=== PATIENT | male | born 1995 | race Caucasian/White ===

== ENCOUNTER 2018-10-02 22:38 | Emergency (ER) | payer OTHER ==
[~2018-10-02 22:38] MED LIST: HYDR-653 PO; TRIA80OI13 TP
--- NOTE | 2018-10-02 22:46 | ER Report ---
History and Physical Time Seen By MD: 22:46 Hx. of Stated Complaint: Patient states he slipped on ice at 2220, falling backwards and hitting his head and left elbow HPI/ROS CHIEF COMPLAINT: fall, elbow injury HISTORY OF PRESENT ILLNESS: This is a 23 year old male. He slipped on the ice tonight. Fell backward. Hit elbow, left. Pain over olecranon and any movement. Has some diffuse tingling distally. Unsure if he hit his head. No loss of consciousness. Vomited once, he thinks from the stress. No headache. No vision changes at this time. No nausea at this time. No dizziness. No neck or back pain. Allergies: Coded Allergies: No Known Drug Allergies (Unverified , 10/02/18) Home Meds Active Scripts Hydrocodone Bit/Acetaminophen (NORCO 5-325 TABLET) 1 Each Tablet, 1 EACH PO Q4H PRN for PAIN, #15 Prov:MIKAYLA DAO DO 05/22/15 Reported Medications Propranolol Hcl (PROPRANOLOL HCL) 20 Mg/5 Ml Solution, 30 MG PO BID 10/02/18 Discontinued Scripts Triamcinolone Acetonide 0.025% (TRIAMCINOLONE ACETONIDE 0.025%) 80 Gm Oint...g., 80 GM TP BID for affected area, #1 TUB Apply a small amount topically 2-3 times a day to affected area Prov:MIKAYLA DAO DO 05/22/15 Reviewed Nurses Notes: Yes Hx Smoking: No Smoking Status: Never Smoker Constitutional Vital Sign - Last 24 Hours 10/02/18 10/02/18 10/02/18 10/02/18 22:41 22:42 23:00 23:08 Temp 98.2 Pulse 56 64 Resp 16 B/P (MAP) 135/72 (93) 135/72 117/75 (89) Pulse Ox 93 90 O2 Delivery Room Air 10/02/18 10/02/18 10/02/18 10/03/18 23:13 23:30 23:43 00:00 Pulse 62 75 B/P (MAP) 112/101 (105) 136/91 (106) Pulse Ox 93 89 Physical Exam General Appearance: Alert, mild distress. Pain in elbow. Eyes: Pupils equal and round, no injection. Reactive to light. Extraocular movements are intact. ENT: Normal oral mucosa. Moist mucous membranes. Neck: Neck is supple and non tender. Respiratory: Chest is non tender, lungs are clear to auscultation. Cardiac: regular rate and rhythm Gastrointestinal: Abdomen is soft and non tender, no masses, bowel sounds normal. Musculoskeletal: Extremities have full range of motion, but pain with elbow motion on left. Pain with palpation over olecranon. No pain in anticubital fossa. No tenderness in head, neck or back. Skin: No rashes or lesions. DIFFERENTIAL DIAGNOSIS: After history and physical exam differential diagnosis was considered for elbow injury with fall. no sign of concussion. Medical Decision Making EKG/Imaging Imaging EXAMINATION: Left elbow radiographs 3 views HISTORY: Fall, pain COMPARISON: None. FINDINGS: Frontal, oblique and lateral views obtained. Bones: Normal. Joint spaces: Normal. Alignment: Normal. Soft tissues: Normal. Effusion: None. IMPRESSION: No fracture of malalignment. Report Dictated By: Cheikh Henao MD at 10/02/2018 11:45 PM ED Course/Re-evaluation ED Course Imaging negative and discussed with the patient. MOON wrap and sling with ice, Ibuprofen and rest as noted. Decision to Disposition Date: Oct 02, 2018 Decision to Disposition Time: 23:59 Depart Departure Latest Vital Signs Vital Signs Date Time Temp Pulse Resp B/P (MAP) Pulse Ox O2 Delivery O2 Flow Rate FiO2 10/03/18 00:00 136/91 (106) 10/02/18 23:43 75 89 10/02/18 22:42 98.2 16 Room Air Impression: Primary Impression: Contusion of elbow, left Condition: Improved Disposition: HOME OR SELF-CARE Patient Instructions: Contusion in Adults (ED) Additional Instructions: Ibuprofen 200mg over the counter tablets, take 4 tablets three times a day with food. Apply ice 20 minutes every 1-2 hours while awake. An MOON wrap can be used for compression to help reduce swelling. Sling and also help. Rest the injured area, keep it elevated while at rest. Begin gentle range of motion exercises. Problem Qualifiers Primary Impression: Contusion of elbow, left Encounter type: initial encounter Qualified Codes: S50.02XA - Contusion of left elbow, initial encounter NUHA CHAKRABORTY MD Oct 02, 2018 22:46
[2018-10-02] MEDS ORDERED: PROP20SO PO (22:47)
--- NOTE | 2018-10-02 23:50 | RADIOLOGY IMAGING REPORT ---
FACILITY: [facility] PATIENT NAME: Kenan Bartholomew : 1995 MR: [id number] V: [id number] EXAM DATE: ORDERING PHYSICIAN: NUHA CHAKRABORTY TECHNOLOGIST: [place] [facility] [place] Kenan Bartholomew : 1995 Visit/Account:[id number] Date of Sevice: 10/02/2018 EXAMINATION: Left elbow radiographs 3 views HISTORY: Fall, pain COMPARISON: None. FINDINGS: Frontal, oblique and lateral views obtained. Bones: Normal. Joint spaces: Normal. Alignment: Normal. Soft tissues: Normal. Effusion: None. IMPRESSION: No fracture of malalignment. Report Dictated By: Cheikh Henao MD at 10/02/2018 11:45 PM Report E-Signed By: Cheikh Henao MD at 10/02/2018 11:46 PM WSN:[id number]
[2018-10-03] VITALS: BP 136/91
== END 2018-10-03 00:08 | disposition home or self-care (01) ==
LOC: ER 22:56
DX: S50.02XA Contusion of left elbow, initial encounter (principal); W00.0XXA Fall on same level due to ice and snow, initial encounter
CPT/HCPCS: 73080; 99283; A4565